=== PATIENT | male | born 1960 | race Caucasian/White ===

== ENCOUNTER → 2017-03-01 | Outpatient (CLI) | payer OTHER ==
--- NOTE | 2017-03-01 08:50 | RAD ---
Right shoulder, 3 views, 03/01/2017: History: Shoulder pain No fracture or dislocation is identified. There is mild spurring and periarticular calcification at the AC joint. There is minimal spurring along the glenoid rim. IMPRESSION: 1. Mild degenerative change. 2. No acute bony abnormality is detected.
== END | disposition home or self-care (01) ==
LOC: DXRADRC 08:13
PROVIDERS: ATTEND Physician Assistant Medical
DX: M19.011 Primary osteoarthritis, right shoulder (principal)
CPT/HCPCS: 73030

== ENCOUNTER → 2017-07-12 | Outpatient (CLI) | payer OTHER ==
--- NOTE | 2017-07-12 15:08 | RAD ---
Indication left ankle pain. No history of recent injury. AP oblique and lateral images of the left ankle were obtained. There are some modest degenerative changes at the tibiotalar joint. Some degenerative changes seen in the midfoot. No acute finding is seen.
== END | disposition home or self-care (01) ==
LOC: DXRADRC 14:52
PROVIDERS: ATTEND Physician Assistant Medical
DX: M19.072 Primary osteoarthritis, left ankle and foot (principal)
CPT/HCPCS: 73610

== ENCOUNTER → 2018-05-21 | Outpatient (CLI) | payer OTHER ==
--- NOTE | 2018-05-22 08:23 | RAD ---
Left ankle, 3 views, 05/21/2018: HISTORY: Ankle pain, swelling There is moderate degenerative change at the ankle joint with marginal spurring and subchondral sclerosis. There is chronic appearing irregularity at the tip of the lateral malleolus compatible with old trauma. No acute fracture or dislocation is identified. A small inferior calcaneal spur is noted. Moderate diffuse soft tissue swelling is present. IMPRESSION: 1. Moderate arthritic change. 2. No acute bony abnormality is detected. Electronically signed by: Fer Zendejas MD (05/22/2018 8:20 AM) [facility]
== END | disposition home or self-care (01) ==
LOC: DXRAD 18:00
PROVIDERS: ATTEND Physician Assistant Medical
DX: M77.32 Calcaneal spur, left foot (principal); M19.072 Primary osteoarthritis, left ankle and foot; M79.89 Other specified soft tissue disorders; M19.011 Primary osteoarthritis, right shoulder
CPT/HCPCS: 73610

== ENCOUNTER → 2019-01-03 | Outpatient (CLI) | payer OTHER ==
--- NOTE | 2019-01-03 14:18 | RAD ---
2 view right knee study Clinical indications: Right knee pain. FINDINGS: No acute fracture or dislocation or lytic process is seen. There is mild degenerative spurring of the lateral tibiofemoral joint compartment and the patellofemoral joint compartment. Small right knee joint effusion is seen. IMPRESSION: Mild primary degenerative osteoarthritis. Electronically signed by: Cash Figueroa MD (01/03/2019 2:14 PM) [id number]
== END | disposition home or self-care (01) ==
LOC: PMG 10:08
PROVIDERS: ATTEND Physician Assistant
DX: M17.11 Unilateral primary osteoarthritis, right knee (principal); M25.461 Effusion, right knee
CPT/HCPCS: 73560

== ENCOUNTER → 2021-09-29 | Outpatient (CLI) | payer MEDICARE ==
--- NOTE | 2021-09-29 10:51 | RAD ---
AP and Lateral Views of the Chest 09/29/2021 9:50 AM Indication: Reason: DSYPNEA / Spl. Instructions: / History: Comparison: None Findings: No pneumothorax, pleural effusion, or focal infiltrates are seen. Heart size is normal. Aor tic tortuosity noted. No acute osseous changes are seen. Degenerative changes of thoracolumbar spine noted. IMPRESSION: No radiographic evidence of acute cardiopulmonary process. Electronically signed by: Trenton Cruz MD (09/29/2021 10:49 AM) [id number]
== END ==
LOC: RAD 09:40
PROVIDERS: ATTEND Physician Assistant
DX: Q25.46 Tortuous aortic arch (principal); R06.00 Dyspnea, unspecified; M47.815 Spondylosis without myelopathy or radiculopathy, thoracolumbar region
CPT/HCPCS: 71046